=== PATIENT | female | born 1975 | race Caucasian/White ===

== ENCOUNTER → 2017-12-30 17:00 | Outpatient (CLI) | payer OTHER, SELFPAY ==
[2018-01-05 14:29] LABS: HPV HC, High Risk Negative (Negative)
== END ==
PROVIDERS: Visit Provider Family Medicine
DX: Z12.4 Encounter for screening for malignant neoplasm of cervix (principal)
CPT/HCPCS: 87624; 88175; G0145

== ENCOUNTER → 2018-02-01 08:17 | Outpatient (CLI) | payer OTHER, SELFPAY ==
--- NOTE | 2018-02-01 08:20 | US_ITS ---
STUDY: ULTRASOUND OF THE FEMALE PELVIS - COMPLETE REASON FOR EXAM: Female, 42 years old. Pelvic pain LMP: 01/06/2018 TECHNIQUE: Transabdominal and Transvaginal TECHNICAL QUALITY: Adequate. COMPARISON: None. FINDINGS: The uterus is anteverted and is in a midline position. The uterus measures 12.6 x 7.3 x 5.4 cm. There is a Nabothian cyst of the cervix. The endometrium measures 14 mm in thickness, and is heterogeneous (striated). There is no demonstrated endometrial mass. Several fibroids are noted. Largest measuring 1.6 x 1.9 x 1.1 cm. I.U.D. - The patient does not have an I.U.D. The right ovary is visualized. The right ovary measures 3.5 x 3 x 2.4 cm. There is no right ovarian cyst or ovarian mass. There is no visualized right adnexal mass or complex lesion. There is normal arterial and normal venous vascularity. The left ovary is visualized. The left ovary measures 3.0 x 4.2 x 2.3 cm. There is a mildly septated cyst measuring 2.4 x 2.1 x 1.8 cm. There is no visualized left adnexal mass or complex lesion. There is normal arterial and normal venous vascularity. There is no fluid in the cul-de-sac. The pre void volume of the bladder was 423 ml. Polycystic ovary disease: No. US/Transvaginal Non- IMPRESSION: 1. Uterine fibroids 2. Multiple small nabothian cysts 3. Mildly septated left ovarian cyst as detailed above. Electronically Signed: Paul Shields DO at 13:01 EDT Tel , Service support ,
--- NOTE | 2018-02-01 08:20 | US_ITS ---
STUDY: ULTRASOUND OF THE FEMALE PELVIS - COMPLETE REASON FOR EXAM: Female, 42 years old. Pelvic pain LMP: 01/06/2018 TECHNIQUE: Transabdominal and Transvaginal TECHNICAL QUALITY: Adequate. COMPARISON: None. FINDINGS: The uterus is anteverted and is in a midline position. The uterus measures 12.6 x 7.3 x 5.4 cm. There is a Nabothian cyst of the cervix. The endometrium measures 14 mm in thickness, and is heterogeneous (striated). There is no demonstrated endometrial mass. Several fibroids are noted. Largest measuring 1.6 x 1.9 x 1.1 cm. I.U.D. - The patient does not have an I.U.D. The right ovary is visualized. The right ovary measures 3.5 x 3 x 2.4 cm. There is no right ovarian cyst or ovarian mass. There is no visualized right adnexal mass or complex lesion. There is normal arterial and normal venous vascularity. The left ovary is visualized. The left ovary measures 3.0 x 4.2 x 2.3 cm. There is a mildly septated cyst measuring 2.4 x 2.1 x 1.8 cm. There is no visualized left adnexal mass or complex lesion. There is normal arterial and normal venous vascularity. There is no fluid in the cul-de-sac. The pre void volume of the bladder was 423 ml. Polycystic ovary disease: No. US/Pelvic (Non ) IMPRESSION: 1. Uterine fibroids 2. Multiple small nabothian cysts 3. Mildly septated left ovarian cyst as detailed above. Electronically Signed: Paul Shields DO at 13:01 EDT Tel , Service support ,
== END ==
PROVIDERS: Family Provider Family Medicine; PCP Family Medicine; Visit Provider Nurse Practitioner Women's Health
DX: R10.2 Pelvic and perineal pain (principal)
CPT/HCPCS: 76830; 76856; 93976

== ENCOUNTER 2021-07-15 15:00 | Outpatient (CLI) | payer OTHER, SELFPAY | END 2021-07-15 23:59 | disposition short-term general hospital (02) | PROVIDERS: PCP Family Medicine; Visit Provider Family Medicine | DX: U07.1 COVID-19 (principal) | CPT/HCPCS: 87635; U0003; U0005 ==

== ENCOUNTER 2021-10-01 13:29 | Outpatient (CLI) | payer OTHER, SELFPAY ==
--- NOTE | 2021-10-01 13:34 | CT_ITS ---
STUDY: CT ABDOMEN WITH CONTRAST REASON FOR EXAM: Female, 45 years old. Abdominal pain -- oral and IV contrast. Umbilical hernia. RADIATION DOSAGE (If Supplied By Facility): CTDIvol = ( 30.58 ) mGy, DLP = ( 1883.60 ) mGycm TECHNIQUE: Transaxial images were obtained post I.V. administration of Oral and amp; IV Readi-CAT and amp; 100mL Isovue-370, and oral contrast. Sagittal and coronal images were reconstructed. Individualized dose optimization techniques were used for this CT. COMPARISON: None. FINDINGS: The visualized lung bases are unremarkable. The visualized portions of the heart are within normal limits. There is decreased attenuation of the liver consistent with steatosis. Normal gallbladder and extrahepatic biliary system. Normal spleen. Normal pancreas. Normal bilateral adrenal glands. Normal right kidney. Normal left kidney. There is a small hiatal hernia. Normal small intestine. Normal colon. The appendix is visualized and appears normal. There is scattered atherosclerotic calcification of the abdominal aorta, without a demonstrated aneurysm. Normal inferior vena cava. There is borderline retroperitoneal lymphadenopathy with enlarged nodes no greater than 10mm in the short axis diameter. Moderate-sized umbilical hernia containing fat and a 5.6 cm x 3 cm loculated fluid collection along its inferior portion. The neck of the hernia measures 4.8 cm. Small benign-appearing bilateral inguinal lymph nodes. Normal osseous structures. CT/Abdomen WITH IV Contrast IMPRESSION: Fatty infiltration of the liver. Umbilical hernia containing fat and involving the finding 5.6 x 3 cm loculated fluid collection. Electronically Signed: Demetrius Zimmerman MD at 15:19 EDT ,
== END 2021-10-01 23:59 | disposition home or self-care (01) ==
LOC: CT 13:31
PROVIDERS: PCP Family Medicine; Visit Provider Surgery
DX: R10.9 Unspecified abdominal pain (principal)
CPT/HCPCS: 74160; Q9967

== ENCOUNTER 2021-11-06 06:00 | Day surgery (SDC) | payer OTHER, SELFPAY ==
--- NOTE | 2021-11-05 12:25 | EKG12_ITS ---
Test Reason : PREOP Blood Pressure : / mmHG Vent. Rate : 090 BPM Atrial Rate : 090 BPM P-R Int : 172 ms QRS Dur : 080 ms QT Int : 370 ms P-R-T Axes : 045 004 -09 degrees QTc Int : 452 ms Normal sinus rhythm Nonspecific ST and T wave abnormality Abnormal ECG Confirmed by RHONDA GATICA, MARY ([id number]), legal editor LINDA VELEZ ([id number]) on 11/06/2021 9:06:41 AM Referred By: Tino Ramirez Confirmed By:MARY ELLIS MD
[2021-11-05 13:57] LABS: Anion Gap 7 (5-15); BUN 13 mg/dL (7-18); BUN/Creat Ratio 15.3 RATIO (10-20); Calcium,Total 9.3 mg/dL (8.5-10.1); Chloride 105 mmol/L (98-107); Creatinine, Serum 0.85 mg/dL (0.55-1.02); EST Glomerular Filtration Rate 77 mL/min (>60); Est Glom Filt Rate - Afr Amer 93 mL/min (>60); Glucose 99 mg/dL (74-106); Potassium 4.1 mmol/L (3.5-5.1); Sodium Level 139 mmol/L (136-145)
[2021-11-06] VITALS (8 sets, daily range): BP systolic 123–161; BP diastolic 61–89; PULSE 78–104; RESP 15–16; TEMP 36.3–37.2; O2SAT 94–98; BMI 53.1
--- NOTE | 2021-11-06 06:22 | PCM.HP.BLA ---
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 Accompanied by: Is patient in pain?: No Allergies Latex, Natural Rubber Allergy (Intermediate, Verified 10/06/21 13:23) rash/blisters soy Adverse Reaction (Intermediate, Verified 10/06/21 13:23) respiratory meats with nitrates Allergy (Intermediate, Uncoded 09/23/21 13:25) rash, hives IV iron Adverse Reaction (Severe, Uncoded 09/23/21 13:25) immediate cramping dairy Adverse Reaction (Intermediate, Uncoded 09/23/21 13:25) Respiratory Medications ascorbic acid (vitamin C) 500 mg capsule mg PO 09/23/21 [History Confirmed 10/06/21] cholecalciferol (vitamin D3) 125 mcg (5,000 unit) capsule 125 mcg PO DAILY 09/23/21 [History Confirmed 10/06/21] COUNT INCLUDES THE [facility] Medical History (Updated 10/06/21 @ 13:[address] Tino Ramirez MD) Anemia Family History Mother Breast cancer Hypertension Father Myocardial infarction Sister Hypertension Social History Smoking Status: Never smoker alcohol intake: never substance use type: does not use diet: lactose free caffeine: No seatbelt use: always do you feel safe at home: Yes additional social history: employed as a freelance graphic designer - [employer] HPI HPI HPI: ALLEN CHAVEZ, is a 45 F who presents to the office today for follow-up after CT scan. Patient still having discomfort at her umbilical hernia. ROS General General: Yes weight change; No appetite, fatigue, colon cancer, breast cancer or weakness HEENT HEENT: Yes swollen glands; No difficulty swallowing, eye injury, eye surgery or hoarseness Endo Endocrine: No thyroid disease, diabetes mellitus, thyroid cancer, Hair loss, heat intolerance or cold intolerance Skin Skin: Yes rash; No changing moles Breast Breast: No left breast lump, right breast lump, nipple discharge, breast pain, abnormal mammogram, abnormal US or breast enlargement Musc Musculoskeletal: Yes back problems; No arthritis, rheumatoid arthritis, gout or joint pain Cardio Cardiovascular: Yes high blood pressure; No murmur, pacemaker, heart disease, atrial fibrillation, heart attack, heart stent, palpitations, shortness of breat with exertion or chest pain Psych Psychiatric: Yes depression and anxiety; No hearing voices Resp Respiratory: Yes shortness of breath, No sleep apnea, No cough, No COPD, No asthma, No emphysema and No wheezing Gastro Gastrointestinal: Yes abdominal pain, Yes nausea or vomiting, Yes diarrhea, Yes constipation, No blood in stool, Yes acid reflux, Yes hemorrhoids, No ulcers, No gallbladder problem and No black,tarry stools Dante Hematologic: No blood thinners, No blood disorders, No bleeding, Yes anemia and Yes blood clots Neuro Neurologic: No system reviewed and no additional complaints, except as documented, No as per HPI, No abnormal gait, No abnormal hearing, No abnormal movements, No abnormal speech, No behavioral changes, No burning sensations, No confusion, No convulsions, No disequilibrium, No dizziness, No localized weakness, No frequent falls, No headache(s), No lack of coordination, No loss of vision, No memory loss, Yes numbness, No other visual disturbances, No radicular pain, No restless legs, No sensory deficit, No syncope, Yes tingling, No tremor(s), No weakness and No other Exam Const General: cooperative Orientation: alert and oriented x3 HENMT Head: normal to inspection Neck Neck: normal visual inspection and full ROM Chest Chest palpation & inspection: normal inspection of the chest Resp Effort & Inspection: normal respiratory effort Auscultation: clear to auscultation bilaterally Cardio Rate: regular rate Rhythm: regular rhythm GI Inspection: non-distended Palpation: soft and nontender Skin General: no rashes or lesions noted Neuro General: patient alert and patient oriented x3 Extrem General: full ROM Psych Appearance: grossly normal Mental Status: mental status grossly normal Assessment and Plan Assessment and Plan (1) Umbilical hernia: Status: Acute Qualifiers: Obstruction and gangrene presence: without obstruction or gangrene Qualified Code(s): K42.9 - Umbilical hernia without obstruction or gangrene Plan - Dr. Tino Ramirez MD: The patient has an umbilical hernia found on CT scan. It appears a few centimeters in diameter containing fat. I discussed robotic assisted laparoscopic hernia repair with mesh. Due to her body habitus I believe this to be less invasive and less painful than laparoscopic or open approach. I discussed the approach as well as the surgery. I discussed the risks including not limited to bleeding, infection, injury to underlying organs such as the bowel or stomach. I discussed possible seroma formation. Patient understands the risks and is willing to proceed with surgery. Tino Ramirez MD Pager: [facility] [address] [place] [address], [address] [place] [address] Office: I have seen and reexamined the patient and there are no changes since prior exam
[2021-11-06 06:42] LABS: Internal QC Validated? YES +Cl - CLEAR BKGD; Pregnancy, Urine Negative Negative
[2021-11-06] MEDS: Lactated Ringers 1,000 ML 15 ML IV ×2 (06:46→09:30)
--- NOTE | 2021-11-06 09:40 | PCM.OPRPT ---
Problems Associated Problem List Diagnoses (1) Ventral hernia: Report of Operation Date of Procedure: 11/06/21 Pre-Operative Diagnosis: Ventral hernia Post-Operative Diagnosis: Ventral hernia Surgery/Procedure Performed:: Robotic assisted laparoscopic ventral hernia repair with mesh Description of Procedure: Patient was brought to the operating room and general anesthesia was induced. The abdomen was prepped and draped in usual sterile fashion. An incision was made in the left upper quadrant and Veress needle was placed into the abdomen. A drop test was performed and then the abdomen was insufflated to 15 mmHg. Veress needle was then removed and a port was placed into the abdomen. Camera was then placed in the abdomen there were no injuries from entry. Next a left lateral and left lower quadrant port were placed under direct visualization. Robot was then docked. The hernia contained omentum. This was reduced fully. Electrocautery scissors the peritoneum was incised laterally and dissection was carried medially until the hernia was identified. The hernia sac was dissected free from its adhesions and reduced into the abdomen. Dissection was carried laterally maintaining hemostasis with electrocautery. Next the hernia defect was closed with a running #1 STRATAFIX suture in 2 layers. Next a 10 x 12 cm ProGrip mesh was placed into the abdomen and unfolded completely covering the hernia defect. The peritoneum was then reapproximated over the mesh using running 3-0V lock suture. There was a small opening in the middle the peritoneum from the hernia sac where there was trouble with dissection and this was closed with a running 3-0V lock suture. The mesh was completely covered at the end of the case. Next the robot was undocked and the abdomen was allowed to desufflate. The incisions were injected with local anesthetic and closed with interrupted 4-0 Monocryl suture. Patient was awoken and taken to PACU stable condition. Grafts/Implants Used: ProGrip mesh Admit VTE Documentation VTE Mechan Device Prophylaxis: SCD's
--- NOTE | 2021-11-06 09:47 | EX.PCM.DISCH ---
Discharge Instructions Procedure Hernia Diet Discharge Diet: Light diet - advance as tolerated Activity Discharge Activity: May Not Drive (for 2-3 days or while taking narcotic pain meds.) and May Shower (with the bandage in place 1-2 days after surgery.) Lifting Restrictions: 20 pounds for 6 weeks. Additional Activity Instructions:: Climbing stairs is fine, walking is encouraged. Sitting in bed may be uncomfortable. Sitting up using your lateral muscles (sitting up sideways) is usually more comfortable. Do not drive, work heavy equipment of sign legal documents for 24 hours. Pain medications may cause nausea, you should typically eat light foods as you take your pain medications. Pain medications may also cause constipation. If you have difficulty with this, discuss with your doctor. Dressing / Incision Call your doctor if your incision/area has: Continuous Slow Oozing, Sudden Increased Bleeding, Increased Pain/ Swelling, Increased Redness and Foul Smelling Discharge Call your doctor if you observe: Fever of 101 or Higher Suture Line Care: Avoid Pulling/Pushing and Avoid Pinching/Bending Remove Dressing in: 2 days (Remove clear bandages in 2 days, remove Steri-Strips in 7 to 10 days.) Cleanse incision/area with: Soap & Water Follow Up Care Please Follow Up With: Tino Ramirez MD When: Please call to schedule 2 week follow up appointment. [phone] Test Results: Test results from this visit will be discussed in further detail at your follow-up appointment, if applicable. Discharge Plan Admission Attending Provider: Tino Ramirez Primary Care Provider: Molly Cornejo Consulting Providers: Bro Mari Instructions Additional Instructions / Restrictions: Tylenol and Ibuprofen for pain, oxycodone if uncontrolled by those. Discharge Orders/Prescriptions Prescriptions: New oxycodone 5 mg tablet 5 - 10 mg PO Q4H PRN (Reason: pain) 5 Days Qty: 30 RF: 0 No Action cholecalciferol (vitamin D3) 125 mcg (5,000 unit) capsule 125 mcg PO DAILY RF: 0 ascorbic acid (vitamin C) 500 mg capsule 500 mg PO DAILY RF: 0 magnesium oxide 240 mg magnesium Powder In Packet 240 mg PO DAILY RF: 0 Other Ambulatory Orders: 12 Lead EKG (Routine) Location: None Selected Ordered By: Dr. Bro Mari Referrals / Follow Up: Molly Cornejo MD [Primary Care Provider] - Disposition Disposition (needs filled in before D/C Order can be placed): Home, Self Care
== END 2021-11-06 12:44 | disposition home or self-care (01) ==
LOC: SDC 06:00 → AC 06:00
PROVIDERS: Anesthesiology; PCP Family Medicine; Referring Provider Surgery; Visit Provider Surgery
PROC: (CPT 49652; principal; 2021-11-06 07:05)
DX: K43.9 Ventral hernia without obstruction or gangrene (principal); Z68.43 Body mass index [BMI] 50.0-59.9, adult; K21.9 Gastro-esophageal reflux disease without esophagitis; Z79.899 Other long term (current) drug therapy; R12 Heartburn; E66.9 Obesity, unspecified; Z86.718 Personal history of other venous thrombosis and embolism
CPT/HCPCS: 49652; S2900; 00830; 36415; 80048; 81025; 87426; 93005; C9803; J7120; J2405

== ENCOUNTER → 2024-10-05 | Outpatient (CLI) | payer OTHER, SELFPAY ==
[2024-10-05 17:59] LABS: Absolute Lymphocyte Count 1.66 X10^3/uL (0.83-4.51); Absolute Neutrophil Count 4.7 X10^3/uL (2.0-7.7); Basophil# 0.06 X10^3/uL; Basophil% 0.8 % (0-1); Eosinophil# 0.44 X10^3/uL; Hematocrit 38.3 % (37-47); Hemoglobin 11.5 g/dL (12.0-15.0); Lymphocyte # 1.66 X10^3/ul (0.83-4.51); Lymphocyte % 22.6 % (19-41); Mean Corpuscular Hgb 23.8 pg (27.0-32.0); Mean Corpuscular Volume 79.3 fL (81-99); Mean Platelet Vol. 9.9 fl (6.2-12.0); Monocyte# 0.48 X10^3/uL; Monocyte% 6.5 % (0-10); NRBC Flagged by Analyzer 0 % (0-5); Neutrophil % 63.8 % (47-70); Platelet Count 451 K/mm3 (150-450); RBC Distribution Width CV 15.9 % (11.6-14.6); Red Blood Count 4.83 M/mm3 (4.2-5.4); White Blood Count 7.4 K/mm3 (4.4-11.0)
[2024-10-05 19:25] LABS: ALB/GLOB Ratio 1.3 RATIO (0.9-2.4); AST(SGOT) 22 U/L (<=31); Alanine Aminotransfer ALT/SGPT 15 U/L (<=34); Alkaline Phosphatase 51 U/L (35-104); Anion Gap 15 (5-15); BUN 11 mg/dL (4-19); BUN/Creat Ratio 12.4 RATIO (10-20); Carbon Dioxide 19.3 mmol/L (21.0-32.0); Chloride 104 mmol/L (98-108); Creatinine, Serum 0.87 mg/dL (0.70-1.20); EST Glomerular Filtration Rate 82 (>60); Globulin 3.2 g/dL (2.2-4.2); Glucose 93 mg/dL (70-99); Potassium 4.7 mmol/L (3.3-5.1); Protein, Total 7.2 g/dL (5.9-8.4); Sodium Level 139 mmol/L (133-145)
== END | disposition home or self-care (01) ==
LOC: BFHLAB 11:49
PROVIDERS: PCP Family Medicine; Referring Provider Family Medicine; Visit Provider Family Medicine
DX: R10.12 Left upper quadrant pain (principal); D25.9 Leiomyoma of uterus, unspecified
CPT/HCPCS: 36415; 80053; 85025